=== PATIENT | female | born 1995 | race Caucasian/White ===

== ENCOUNTER 2019-04-19 09:00 | Outpatient (CLI) | payer BC ==
--- NOTE | 2019-04-19 09:51 | ULT ---
RIGHT BREAST ULTRASOUND: Date: 04/19/19 PROVIDED CLINICAL HISTORY: Fibrocystic disease. FINDINGS: Sonographic interrogation was performed of the right breast. A simple cyst with single internal septa tion is seen at the 1 o'clock position measuring about 1.2 cm. The sonographic appearance of the [address] parenchyma is otherwise normal. IMPRESSION: No concerning sonographic abnormalities are evident. Negative or benign imaging findings should not p reclude further evaluation of a clinically suspicious abnormality. The patient is referred back to yaw r clinician. POS: OFF
--- NOTE | 2019-04-19 09:52 | ULT ---
LEFT BREAST ULTRASOUND: Date: 04/19/19 PROVIDED CLINICAL HISTORY: Fibrocystic disease. FINDINGS: Sonographic interrogation was performed of the left breast. The sonographic appearance of the breast tissue is normal. IMPRESSION: Normal. Negative imaging findings should not preclude further evaluation of a clinically suspicious a bnormality. The patient is referred back to her clinician. POS: OFF
== END 2019-04-19 09:01 | disposition home or self-care (01) ==
LOC: BICULT 09:00
PROVIDERS: ATTEND Obstetrics & Gynecology
DX: N60.19 Diffuse cystic mastopathy of unspecified breast (principal)